=== PATIENT | male | born 1965 | race Caucasian/White ===

== ENCOUNTER 2018-12-10 14:21 | Emergency (ER) | payer MEDICARE, OTHER ==
[~2018-12-10] VITALS: Ht 180.3 cm; Wt 72.6 kg
[2018-12-10] MEDS ORDERED: ASPI81CH PO (14:29)
[2018-12-10] MEDS ORDERED: HYDR1TAB94 PO (14:29)
[2018-12-10] MEDS ORDERED: NORT25 (14:30)
[2018-12-10] MEDS ORDERED: Tizanidine HCl2 MG (14:30)
[2018-12-10] MEDS ORDERED: Sudogest30 MG PO (15:36)
[2018-12-10] MEDS ORDERED: Flonase 0.05% N16 GM (15:36)
[2018-12-10] MEDS ORDERED: Cheratussin AC118 ML PO (15:36)
== END 2018-12-10 15:47 | disposition home or self-care (01) ==
LOC: ER 14:21
DX: J01.90 Acute sinusitis, unspecified (principal); Z79.82 Long term (current) use of aspirin